=== PATIENT | male | born 1925 | race Caucasian/White ===

== ENCOUNTER 2016-09-28 05:14 | Observation (INO) | payer OTHER, MEDICARE ==
[2016-09-28] VITALS (8 sets, daily range): BP systolic 142–188; BP diastolic 57–96
[~2016-09-28] VITALS: Ht 175.3 cm; Wt 67.1 kg
--- NOTE | ~2016-09-28 | O ---
[facility] [place] [address] OPERATIVE REPORT Name: BERTA HAYS Room #: 403-P [facility] M.R.#: [id number] Admission: 09/28/16 Attend Phys: Miky Guallpa MD Discharge: Date of : [birth year] Report #: [id number] THIS REPORT FOR: //name// CC: Miky Anton MD PREOPERATIVE DIAGNOSIS: Benign prostatic hypertrophy. POSTOPERATIVE DIAGNOSIS: Benign prostatic hypertrophy. PROCEDURE: Cystoscopy and transurethral laser ablation of the prostate. SURGEON: Miky Guallpa M.D. ANESTHESIA: General. INDICATIONS: The patient is a very pleasant 89-year-old gentleman with history of urinary retention and recent urinary tract infection. 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 Risks, benefits and complications have been discussed in detail. Risk of failure of the procedure as well as bleeding and sepsis have been discussed. They understand complications could occur which may not have been discussed or anticipated. SURGICAL PROCEDURE: After obtaining informed consent, he was brought to the operating room and general anesthetic was administered. He was prepped and draped in lithotomy position by the operating room personnel under anesthesia supervision. The 21-Tristanian ACMI cystoscope was introduced under direct vision. The anterior urethra was normal. The prostatic urethra demonstrated trilobar enlargement with elevation of the bladder neck. The bladder mucosa was heavily trabeculated with cellule formation, but there were no abnormal masses. I then inserted the laser-adapted cystoscope, identified the ureteral orifices. I incised the bladder neck distal to the verumontanum at 4 o'clock and 8 o'clock with the Thulium laser. I then ablated the tissue in the midline and then took down the right lateral lobe tissue and left lateral tissue, paying careful attention to not encroach upon the bladder neck or trigone and the area of the ablation did not go below the verumontanum. At the conclusion of the procedure, the irrigation was clear. I removed the cystoscope and placed a 22-Tristanian 3-way Ramos catheter. Continuous irrigation was applied. Urine was clear. He was transferred to the recovery room, where he arrived in stable condition. <ELECTRONICALLY SIGNED> By: Miky Guallpa MD 09/29/16 0622 [id number] [id number] Miky Guallpa MD /nt
--- NOTE | ~2016-09-28 | HC ---
[facility] [place] [address] CONSULTATION Name: BERTA HAYS Room #: 403-P [facility] M.R.#: [id number] Admission: 09/28/16 Attend Phys: Miky Guallpa MD Discharge: 09/29/16 Date of : [birth year] Report #: [id number] THIS REPORT FOR: //name// CC: Miky Anton MD DATE OF SERVICE: 09/28/2016 CONSULTING PHYSICIAN: Mkiy Guallpa MD PRIMARY DOCTOR: Alphonse Anton MD CHIEF COMPLAINT: Medical management. HISTORY OF PRESENT ILLNESS: The patient is an 89-year-old male with a history of BPH, hypertension, glaucoma and left eye blindness, status post TURP, needing medical management. He currently denies any significant postoperative pain. Denies any chest pain or shortness of breath. His pressures have been running a little high in the 170s. He indicates that he took all his blood pressure medications this morning. As stated, he denies any chest pain or shortness of breath. PAST MEDICAL HISTORY: As stated, hypertension, BPH status post TURP, blindness in his left eye, arthritis. ALLERGIES: DIAMOX causes hypotension. THORAZINE causes altered mental status. PAST SURGICAL HISTORY: He had a TURP as above, total hip replacement, appendectomy, leg vein ligation, liver biopsy and abscess drainage in 2005. HOME MEDICATIONS: [place] p.r.n., atenolol 100 mg daily, vitamin D 1000 units daily, Excedrin p.r.n., Flomax 0.8 mg daily, Zestoretic 20/25 one daily. SOCIAL HISTORY: He drinks very infrequently. Lives at home with his . Does not drive, does not smoke. FAMILY HISTORY: Reviewed and noncontributory. REVIEW OF SYSTEMS: A 14-point review systems was conducted, all negative except for above. PHYSICAL EXAMINATION: VITAL SIGNS: Temperature of 97, pulse of 52; last blood pressure systolic 170, O2 sat 97% on room air. [facility] [address] [place] [address] CONSULTATION Name: BERTA HAYS Room #: 403-P [facility] M.R.#: [id number] Admission: 09/28/16 Attend Phys: Miky Guallpa MD Discharge: 09/29/16 Date of : [birth year] Report #: [id number] GENERAL: He is awake, alert, answering questions appropriately, in no acute respiratory distress. HEENT: He has got left eye distortion. Mucous membranes are moist. CARDIOVASCULAR: Regular rate and rhythm. No murmurs. LUNGS: Clear to auscultation bilaterally. No crackles or wheezes. ABDOMEN: Soft, no distention or tenderness. EXTREMITIES: No edema. NEUROLOGIC: Nonfocal. His Ramos has notable red urine in it. LABS AND TESTING: H and H of 15 and 46, sodium 136, potassium 3.8, BUN and creatinine 21 and 1.1. ASSESSMENT AND PLAN: 1. Status post transurethral resection of the prostate. Continue postop care per Urology including his current CBIs. 2. Hypertension. Resume his home meds and add hydralazine p.r.n. 3. Glaucoma with left eye blindness. Continue his home medications. 4. Deep venous thrombosis prophylaxis. SCDs. Thank you for this consult. We will follow with you. <ELECTRONICALLY SIGNED> By: Sylwia Reis MD 10/25/162009 1654 0308 Sylwia Reis MD /nt
[~2016-09-28 05:14] MED LIST: ALEVE220 MG PO; ASPIRIN325 PO; ATENOLOL 100MG100 MG PO; AZO URINARY P97.5 MG; BACLOFEN 10 MG10 MG PO; BACLOFEN 10MG T10 M1 PO; BACLOFEN PO; CENTRUM SILVER1 EAC2 PO; EXCEDRIN CAPLE1 EACH; EXCEDRIN CAPLE1 EACH PO; FISH OIL300 MG PO; FISHOIL PO; FLOMAX0.4 MG PO; HYDROCHLOROTHIA50 MG PO; HYDROCODON-ACE1 EAC5 PO; HYDROCODON-ACE1 EAC7 PO; HYDROCODONE-AP1 EAC6 PO; IBUPROFEN 200200 M1 PO; KEFLEX500 MG PO; LISINOPRIL10 MG PO; MOBIC15 MG PO; MULTIVITAMINS; MULTIVITAMINS PO; NORCO 5-325 TA1 EACH PO; OXYCODONE HCL15 MG PO; OXYCODONE HCL15 MG URETHRAL; OXYCODONE-APAP1 EAC6 PO; SOMA250 MG PO; TYLENOL EX-STR500 M2 PO; VITAMIN D1000 UNI1 PO; ZESTORETIC 20-1 EAC2 PO; ZOCOR 20 MG TAB20 M1 PO; gabapentin PO
[2016-09-28 09:31] LABS: HEMATOCRIT 46.4 % (42.0-52.0); HEMOGLOBIN 15.4 gm/dL (14.0-18.0)
[2016-09-28 09:42] LABS: CALCIUM 9.8 mg/dL (8.5-10.1); CREATININE 1.1 mg/dL (0.6-1.3); POTASSIUM 3.8 mmol/L (3.5-5.1)
[2016-09-29 04:00] VITALS: BP 120/60
[2016-09-29 07:23] LABS: HEMATOCRIT 42.5 % (42.0-52.0); HEMOGLOBIN 14.4 gm/dL (14.0-18.0); MCH 31.3 pg (26.0-34.0); MCHC 33.9 % (28.0-37.0); MCV 92.5 fL (80.0-100.0); RBC 4.59 mil/uL (4.50-6.00); WBC 10.1 thou/uL (4.0-11.0)
[2016-09-29 07:36] LABS: CALCIUM 9.4 mg/dL (8.5-10.1); CREATININE 1.1 mg/dL (0.6-1.3); POTASSIUM 3.6 mmol/L (3.5-5.1)
[2016-09-29 08:00] VITALS: BP 120/58
[2016-09-29] MEDS ORDERED: LACTINEX CHEWA1 EACH PO (11:37)
[2016-09-29] MEDS ORDERED: AMOXICILLIN 50500 MG PO (11:37)
[2016-09-29 11:57] VITALS: BP 120/58
[2016-10-17] MEDS ORDERED: OXYCODONE HCL15 MG PO (09:25)
== END 2016-09-29 12:20 | disposition home or self-care (01) ==
LOC: OR 05:14 → TBA 05:15 → OR 12:32 → 4N 14:37 → OR 14:37 → 4N 09-29 12:20
PROVIDERS: Family Medicine; Specialist
DX: N40.0 Benign prostatic hyperplasia without lower urinary tract symptoms (principal); R33.9 Retention of urine, unspecified; I10 Essential (primary) hypertension; H54.42 Blindness, left eye, normal vision right eye; Z79.899 Other long term (current) drug therapy; N39.0 Urinary tract infection, site not specified
CPT/HCPCS: 50010; 50101; 56815; 62110; 62900; 70005

== ENCOUNTER → 2016-10-17 | Outpatient (CLI) | payer OTHER, MEDICARE ==
[~2016-10-17] VITALS: Ht 172.7 cm; Wt 66.7 kg
[~2016-10-17] MED LIST changes: +AMOXICILLIN 50500 MG PO; +LACTINEX CHEWA1 EACH PO
--- NOTE | ~2016-10-17 | HPC ---
[facility] [place] [address] PAIN MANAGEMENT CONSULTATION Name: BERTA HAYS Room #: REG CLI Taiwo.#: [id number] Admission: 10/17/16 Attend Phys: Ki Hoyt MD Discharge: Date of : [birth year] Report #: [id number] THIS REPORT FOR: //name// CC: Alphonse Hoyt DATE OF SERVICE: 10/17/2016 Followup visit for chronic low back pain, lumbar radiculopathy, degenerative disk disease and osteoarthritis. HISTORY: The patient returns to the pain clinic with his . He is 89 years of age and he has been a patient of our practice for over 10 years. During that time, we have helped him remain active with the use of pain medication and intermittent injections. He has multiple pain generators, as might be expected for his age. With the use of medication, he scores his pain as a 3/10. Pain is worse in the morning when he first gets up, also typical of age. Pain is across his low back, radiates into both hips, which affects his ambulation. Epidural injections seemed to help this and he receives an injection typically 2-3 times a year. Pain radiates also down into the ankle, which is, I believe, radicular in nature. He has osteoarthritis with bilateral total hip replacements. Has complaints of pain in his ankle on the left, due also to arthritic changes. He also has a history of neurocardiogenic syncope, but this has been well managed by Dr. Anton. MEDICATIONS: Reviewed and reconciled. The medications provided through our clinic are oxycodone 7.5, up to 15 mg 3 times daily. Over the course of the last year or 2, he stuck to one-half of a 15 mg tablet 3 times a day on a schedule. This has not only been effective for his pain, but it has been well managed from a side effect standpoint and he has been receiving that in a cost effective manner. I am not going to change that dose or its formulation at this time. We have discussed, at every visit, the importance of safeguarding medications, which he does religiously. He gets all of his medications from [facility] and has not been receiving narcotics from any other physicians. He is grateful for the medication which allows him to live a more full and active life and he is into his late 80s. PHYSICAL EXAMINATION: GENERAL: Pleasant, alert and oriented. VITAL SIGNS: Blood pressure 165/83 and heart rate 60. Height 5 feet 8 with a BMI of 22.4. MUSCULOSKELETAL: He does not use a cane. He does not have a fall risk at this [address] [address] PAIN MANAGEMENT CONSULTATION Name: BERTA HAYS Room #: REG DAMIEN Nuñez#: [id number] Admission: 10/17/16 Attend Phys: Ki Hoyt MD Discharge: Date of : [birth year] Report #: [id number] time. Pain across his low back is noted, with decreased range of motion. Straight leg raising bilaterally causes discomfort into the hips and buttocks. IMPRESSION: 1. Chronic low back pain with bilateral radiculopathy. 2. Osteoarthritis, hips and ankles. 3. Management of high-risk medication under terms of an opioid agreement. 4. Neurocardiogenic syncope. PLAN: 1. I have renewed his medications with our usual discussion with the importance of safeguarding and taking medications appropriately and managing side effects. 2. Epidural steroid injection under fluoroscopic guidance. PROCEDURE: The patient was taken to the fluoroscopic suite for procedure, placed prone and skin prepped with ChloraPrep. Skin anesthetized over the L4-L5 interspace. A 20-gauge Tuohy epidural needle advanced, first attempt in the epidural space with loss of resistance. No blood or CSF aspirated. A 1 mL of Omnipaque was injected with excellent spread of dye observed in the epidural space. This was followed by 3 mL of 1% lidocaine mixed with 80 mg of triamcinolone. He tolerated the procedure well, was observed for 45 minutes and discharged. Followup visit planned as needed. <ELECTRONICALLY SIGNED> By: Ki Hoyt MD 10/29/16 1130 0951 [id number] Ki Hoyt MD /nt
[2016-10-17 09:03] VITALS: BP 165/83
== END | disposition home or self-care (01) ==
LOC: PAIN
DX: M54.16 Radiculopathy, lumbar region (principal); G89.29 Other chronic pain; M16.0 Bilateral primary osteoarthritis of hip; M19.072 Primary osteoarthritis, left ankle and foot; M19.071 Primary osteoarthritis, right ankle and foot; R55 Syncope and collapse

== ENCOUNTER → 2017-01-02 | Outpatient (CLI) | payer OTHER, MEDICARE ==
[~2017-01-02] VITALS: Ht 170.2 cm; Wt 65.9 kg
--- NOTE | ~2017-01-02 | HPC ---
[facility] [place] [address] PAIN MANAGEMENT CONSULTATION Name: BERTA HAYS Room #: REG CLI Taiwo.#: [id number] Admission: 01/02/17 Attend Phys: Ki Hoyt MD Discharge: Date of : [birth year]/17[birth year] Report #: [id number] THIS REPORT FOR: //name// CC: Alphonse Hoyt DATE OF SERVICE: 01/02/2017 DATE OF REGISTRATION: 01/02/2017 REASON FOR VISIT: Followup visit for chronic low back pain, lumbar radiculopathy, and osteoarthritis. SUBJECTIVE: The patient is here today with his to renew his medication. He has widespread pain with multiple generators. They include low back pain with radiculopathy, pain into both hips, pain into her shoulders and knees. Most of this is related to age degeneration. He has done well with his medications and has kept him more active. PHYSICAL EXAMINATION: GENERAL: Today, pleasant, alert and oriented. His affect is a little bit slow, but he is 89 years of age, seems appropriate. He does not show signs of dementia. VITAL SIGNS: His blood pressure is 144/70, heart rate is 61, respirations 14, and BMI is 22.7. MUSCULOSKELETAL: Multiple joint tenderness noted including shoulders, hips and knees. Range of motion of the lumbar spine is . IMPRESSION: 1. Chronic intractable pain with multiple osteoarthritic pain generators including hips, shoulders, ankles, and knees. 2. Chronic low back pain with radiculopathy. 3. Management of high-risk medications under terms of an opioid agreement. 4. Neurocardiogenic syncope, which is improved. PLAN: I renewed medications today for him under terms of our opioid agreement with reminder of the CDC guidelines. He is 89 years old, but I still want to make sure that he is very cautious about using the lowest effective dose and keeping all medications safeguarded. His is with him today, and I think together they work to do so. He is prescribed oxycodone 15 mg tablets, #90, tablets he will use, one-half to one tablet t.i.d. I think that most of the time, he will stick with [facility] [address] [place] [address] PAIN MANAGEMENT CONSULTATION Name: BERTA HAYS Room #: REG CL M..#: [id number] Admission: 01/02/17 Attend Phys: Ki Hoyt MD Discharge: Date of : [birth year] Report #: [id number] one-half tablet. This should be 3-4 months of medication. I have not done urine drug screen on him. We will do so at the next visit. By: 1610 0120 Ki Hoyt MD /nt
[2017-01-02 15:04] VITALS: BP 144/70
== END | disposition home or self-care (01) ==
LOC: PAIN 07:03
DX: M54.16 Radiculopathy, lumbar region (principal); M16.0 Bilateral primary osteoarthritis of hip; R55 Syncope and collapse

== ENCOUNTER → 2017-02-06 | Outpatient (CLI) | payer OTHER, MEDICARE ==
[~2017-02-06] VITALS: Ht 170.2 cm; Wt 66.4 kg
--- NOTE | ~2017-02-06 | HPC ---
[facility] [place] [address] PAIN MANAGEMENT CONSULTATION Name: NIKO HAYS Room #: REG CL Taiwo.#: [id number] Admission: 02/06/17 Attend Phys: Ki Hoyt MD Discharge: Date of : [birth year]/17/[birth year] Report #: [id number] THIS REPORT FOR: //name// CC: Alphonse Hoyt DATE OF SERVICE: 02/06/2017 Followup visit for low back pain with radiculopathy. Niko returns to the pain clinic today complaining of several pain. First of all is low back pain with radiculopathy, which was treated successfully in the past with epidural injections. Secondly complains of multiple joint pains including pain in the hips; shoulders; ankles, left worse than right; and bilateral knee pain. The ankle pain is related to a fracture from the distant past and the knee pain is more recent. He fell landing on his knees and has had increased soreness there. He also has pain in his shoulders related to age and degeneration. MEDICATIONS: Continued to provide relief and he is on oxycodone 15 mg, he takes under terms of an opioid agreement, which we reviewed today. His last epidural injection was performed on October 17. He reported several months of substantial reductions in the pain in his legs. Pain today is back to 6/10. PAST MEDICAL HISTORY: Remarkable for a neurogenic syncope and kidney stones. PHYSICAL EXAMINATION: He is a slender gentleman. Blood pressure 128/59, heart rate 67. BMI is 22.9. He is able to move independently from sitting to standing position, walks with difficulty. There is tenderness across his low back. He has decreased range of motion in flexion, extension and rotation. Straight leg raising bilaterally is uncomfortable, worse on the left than the right. He has pain in both hips with internal and external rotation tenderness bilaterally in the knees. Generalized weakness is noted throughout the lower extremities. IMPRESSION: 1. Low back pain with radiculopathy. 2. Multiple joints osteoarthritis. 3. History of cardiogenic syncope. 4. Management of high risk medication under terms of an opioid agreement. PROCEDURE: Epidural steroid injection L4-L5 under fluoroscopic guidance. He was taken to fluoroscopic suite, placed in a prone position. Skin prepped [address] [address] PAIN MANAGEMENT CONSULTATION Name: NIKO HAYS Room #: REG [facility] [place]#: [id number] Admission: 02/06/17 Attend Phys: Ki Hoyt MD Discharge: Date of : [birth year]/17/[birth year] Report #: [id number] with ChloraPrep. Skin was anesthetized and a 20-gauge Tuohy epidural needle advanced into the epidural space. I was unable to aspirate any CSF or blood. However, the injection of dye demonstrated an anterior spread into the epidural space or subdural space. I would attempt again to aspirate, but no fluid was able to be aspirated. I then injected a total of 3 mL of normal saline along with 40 mg of triamcinolone to the anterior spread. He tolerated the procedure well and was observed in recovery room for a short time. There was mild numbness to the 1% lidocaine and the loss of resistance syringe. He was observed for a short time before discharge and a followup visit is scheduled in the pain clinic in 3-6 months. By: 1531 0212 Ki Hoyt MD /nt
[2017-02-06 14:09] VITALS: BP 128/59
== END ==
LOC: PAIN 06:37
DX: M54.5 Low back pain (principal); M19.90 Unspecified osteoarthritis, unspecified site; R55 Syncope and collapse; I10 Essential (primary) hypertension

== ENCOUNTER → 2017-04-03 | Outpatient (CLI) | payer OTHER, MEDICARE ==
[~2017-04-03] VITALS: Ht 177.8 cm; Wt 67.6 kg
[2017-04-03 14:37] VITALS: BP 140/70
== END | disposition home or self-care (01) ==
LOC: PAIN 06:57
DX: M54.10 Radiculopathy, site unspecified (principal); M16.0 Bilateral primary osteoarthritis of hip; M17.0 Bilateral primary osteoarthritis of knee; R55 Syncope and collapse; M43.16 Spondylolisthesis, lumbar region